=== PATIENT | male | born 1955 | race African-American/Black ===

== ENCOUNTER 2016-06-27 06:55 | Emergency (ER) | payer OTHER ==
--- NOTE | 2016-06-27 07:38 | PROVIDER DOCUMENTATION ---
HPI-Musculoskeletal Pain/Inj - GENERAL Chief Complaint: Back Pain Stated Complaint: BACK PX/DIABETIC SORE ON TOE Time Seen by Provider: 06/27/16 07:21 Source: patient - HX OF PRESENT ILLNESS-MUSKULOSKELTAL Nature of Presenting Problem: 6days of unprovoked acute pain on chronic pain in lumbar area Quality of Pain: reports: aching, sharp, stabbing Severity in ED: moderate Onset/Duration: 6 days ago Timing: still present Modifying Factors: improves with: lying down. worse with: movement Any recent injury?: No Locality of Occurance: Home Similar Symptoms Previously?: Yes Recently seen or treated by another doctor?: No Review of Systems - Adult - REVIEW OF SYSTEMS - ADULT Constitutional: denies: chills, fever Eyes: reports: no symptoms reported Ears, Nose, Mouth & Throat: reports: no symptoms reported Cardiovascular: denies: chest pain, palpitations Respiratory: denies: cough, shortness of breath Gastrointestinal: denies: constipation, diarrhea, nausea, vomiting Genitourinary: reports: no symptoms reported Musculoskeletal: reports: back pain Integumentary: reports: no symptoms reported Neurological: reports: no symptoms reported Psychiatric: reports: no symptoms reported Endocrine: reports: no symptoms reported Hematologic/Lymphatic: reports: no symptoms reported Allergic/Immunologic: reports: no symptoms reported Past History - Adult - PAST MEDICAL HISTORY-ADULT Review of Records: reports: Nursing Assessment Review, Medications Reviewed, Social history reviewed & non-contributory. 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) Neurological: reports: denies history Psychiatric: reports: anxiety Endocrine/Immune: reports: Diabetes, thyroid disorder (parathyroid), other (CKD / sucessful transplant 2008 on immunosuppressants) Other Conditions: reports: denies history - PRIOR SURGERIES/PROCEDURES Surgical/Procedure History: reports: cholecystectomy, other (parathyroidectomy, kidney transplant) - IMMUNIZATION STATUS Childhood Immunizations: See Nurse Assessment Flu Vaccine: See Nurse Assessment - FAMILY HISTORY Family History: CAD over 55 yo Physical Exam-Injury Related - Physical Exam-Injury Related Initial Vital Signs Reviewed: Yes General Appearance: appears well, alert, no apparent distress Eyes: PERRL/EOMI Head, Ears, Nose, Mouth & Throat: normocephalic/atraumatic Neck: supple Respiratory: lungs clear, no respiratory distress Cardiovascular: regular rate, rhythm Peripheral Pulses: dorsalis-pedis (R): 1+, dorsalis-pedis (L): 1+ Abdominal Exam: soft Lymphatic: no adenopathy Back Exam: no CVA tenderness Extremity: pulse deficit, slow capillary refill Integumentary: normal color Neurologic: grossly normal Psych/Mental Status: normal mood/affect Progress - XRAY 1 XRAY Study: Lumbar Spine (degenerative changes) Departure - Departure Time of Disposition Order: 09:19 DIAGNOSIS: Low back pain Qualifiers: Chronicity: acute Back pain laterality: bilateral Sciatica presence: without sciatica Qualified Code(s): M54.5 - Low back pain Disposition: HOME 01 Certified Medical Emergency: Emergent Condition: Stable Additional Instructions: ED Follow Up Instructions: You have been treated by a care provider in the Emergency Department. These instructions are being provided to you so you can have an understanding of how to care for yourself upon discharge. Upon discharge from the Emergency Department, you are responsible for making arrangements for follow-up care by a physician of your choice. Take all prescribed medications as directed. Return to the Emergency Department immediately for any new or worsening symptoms. You may call the Physician Referral phone number at [phone] to obtain a list of Physicians who are taking new patients. Prescriptions: Tramadol [Ultram] 50 mg PO Q6H PRN PRN #20 tablet PRN Reason: Pain
--- NOTE | 2016-06-27 08:37 | Diag Imaging Result Document ---
PROCEDURE NAME: LUMBAR SPINE - 06/27/2016 LUMBAR SPINE AP AND LATERAL WITH OBLIQUES, 6 VIEWS: FINDINGS: There is slight curvature to the spine which may simply be positional in nature. No compressed vertebra. No subluxation. There are only tiny degenerative bone spurs. Prominent atherosclerosis. Prominent stool throughout the colon The gallbladder has been removed. IMPRESSION: 1. Tiny degenerative bony spurs. 2. Prominent atherosclerosis. 3. Constipation. [facility]
[2016-06-27 09:33] VITALS: BP 164/81
== END 2016-06-27 09:32 | disposition home or self-care (01) ==
LOC: P.ED 06:55
DX: M54.5 Low back pain (principal); I48.91 Unspecified atrial fibrillation; E78.5 Hyperlipidemia, unspecified; K21.9 Gastro-esophageal reflux disease without esophagitis; E11.9 Type 2 diabetes mellitus without complications; E07.9 Disorder of thyroid, unspecified; I12.9 Hypertensive chronic kidney disease with stage 1 through stage 4 chronic kidney disease, or unspecified chronic kidney disease; N18.9 Chronic kidney disease, unspecified; Z94.0 Kidney transplant status; Z79.899 Other long term (current) drug therapy; Z79.52 Long term (current) use of systemic steroids; Z79.4 Long term (current) use of insulin; Z82.49 Family history of ischemic heart disease and other diseases of the circulatory system
CPT/HCPCS: 72110; 82948; 99284

== ENCOUNTER 2016-07-13 17:54 | Emergency (ER) ==
--- NOTE | 2016-07-13 18:29 | EKG Report ---
Test Performed on : 07/13/2016 6:05:34 PM Test Reason : stroke like symptom Blood Pressure : / mmHG Vent. Rate : 095 BPM Atrial Rate : 113 BPM P-R Int : 000 ms QRS Dur : 100 ms QT Int : 384 ms P-R-T Axes : 000 -04 108 degrees QTc Int : 482 ms Atrial fibrillation. with premature ventricular or aberrantly conducted complexes. Cannot rule out Anterior infarct , age undetermined Abnormal ECG When compared with ECG of 01-JUN-2016 19:50, Atrial fibrillation. has replaced Sinus rhythm. QT has lengthened Unconfirmed Result
--- NOTE | 2016-07-13 19:15 | ED EKG INTERP ---
EKG Interpretation - EKG Time of EKG reading by physician:: 18:05 EKG Read and Signed by:: Sudarshan Neff EKG Interpretation (*Must complete 3 of following elements*): Abnormal Rate: 95 Rhythm: NSR W/PAC'S NO INTERVAL CHANGES [place]: normal QRS: normal RI Interval: normal ST Wave: normal - EKG # 2 Time of EKG reading by physician:: 18:06 EKG Read and Signed by:: Sudarshan Neff EKG Interpretation (*Must complete 3 of following elements*): Abnormal Rate: 84 Rhythm: NSR ST Wave: non-specific ST changes (T WAVE CHANGES) Comments: LITTLE CHANGE FROM 06/11 STUDY Attestation - Scribe Verification/Attestation Scribe:: Cathy Arthur Acting as Scribe for:: Sudarshan Neff Scribe documention review:: This chart was documented by a scribe and accurately reflects the service the provider performed and the decisions made by the provider. Physician Attestation - Physician Attestation I, the provider, attest to the following statement:: Sudarshan Neff Physician documentation Attestation:: This documentation recorded by the scribe accurately reflects the service I personally performed and the decisions made by me.
[2016-07-13 19:16] LABS: MANUAL DIFF NEEDED? NO
[2016-07-13] MEDS ORDERED: LABETALOL IV ONE (19:19)
[2016-07-13] MEDS ORDERED: ASPIRIN PO ONE (19:19)
[2016-07-13] MEDS ORDERED: VASOTEC IV ONE (19:21)
[2016-07-13 19:22] LABS: BASO% 0.2 % (0.0-0.8); EOS# 0.19 X1000 (0.0-0.7); EOS% 3.4 % (0.0-10.0); HEMATOCRIT 42.4 % (42.0-52.0); HEMOGLOBIN 13.7 g/dL (14.0-18.0); IMM GRAN# 0.01 X1000 (0.0-0.04); IMM GRAN% 0.2 % (0.0-0.5); LYMPH# 0.99 X1000 (1.2-3.4); MCH 28.2 PG (27-31); MCHC 32.3 g/dL (33-37); MCV 87.4 FL (81-99); MONO# 0.81 X1000 (0.11-0.59); MONO% 14.7 % (1.7-9.3); MPV 10.5 FL (7.4-10.4); NEUT% 63.5 % (42.2-75.2); PLT 136 X1000 (130-400); RBC 4.85 XMIL (4.7-6.1)
--- NOTE | 2016-07-13 19:28 | PROVIDER DOCUMENTATION ---
HPI-General Adult - General Source: patient - History of Present Illness -Gen Adult Nature of Presenting Problems: PT IS A 60YOM PRESENTING TO THE ED C/O NUMBNESS AND PAIN TO THE RIGHT LEG. PT STATES WAS SEEN AT [place] X[place] WEE[place] AGO AND DIAGNOSED WITH SPINAL STENOSIS. THEY ADVISED EITHER SURGERY, EPIDURAL INJECTION, OR NOTHING AT ALL. AT TIME OF EXAM PT HAD NO DEFICITS. A PUSTULE NOTED TO THE LEFT FOOT, 2 HEALING WOUNDS RT GREAT TOE, ERYTHEMA DISTAL RT FOOT IN COMPARISON TO HIS LEFT FOOT. ADVANCED DAMAGE TO NAIL BEDS Location of Pain/Injury: reports: generalized Pain Radiation: reports: no radiation Quality of Pain: reports: aching Severity: reports: moderate Onset/Duration: reports: just prior to arrival Timing: reports: still present Context/Activities at Onset: reports: light activity Modifying Factors: improves with: nothing Associated Symptoms: reports: cough, fatigue, sinus congestion/drainage, weakness, trouble walking. denies: chest pain, diaphoresis Similar Symptoms Previously?: No Recently seen or treated by another doctor?: No <Cathy Arthur - Last Filed: 07/13/16 22:24> <Sudarshan Neff - Last Filed: 07/13/16 22:44> - General Chief Complaint: Stroke-Like Symptoms Stated Complaint: STROKE LIKE SX Time Seen by Provider: 07/13/16 18:39 Allergies/Adverse Reactions: Patient Allergies Allergy/AdvReac Type Severity Reaction Status Date / Time morphine AdvReac NAUSEA/VOMI Verified 07/13/16 21:50 TING Home Medications: Home Medication List Medication Instructions Recorded Confirmed Last Taken Type Digoxin 0.125 mg PO DAILY 02/08/13 07/13/16 06/01/16 09:00 History Minoxidil 2.5 mg PO BID 02/08/13 07/13/16 06/01/16 09:00 History Prednisone 10 mg PO DAILY 02/08/13 07/13/16 06/01/16 09:00 History Tacrolimus [Prograf] 1 mg PO BID 02/08/13 07/13/16 06/01/16 09:00 History Clonidine [Catapres] 0.2 mg PO TID@0900,1500,2100 04/01/13 07/13/16 06/01/16 15: 00 History Alprazolam 0.5 mg PO TID PRN PRN 12/07/13 07/13/16 06/01/16 09:00 History Calcitriol 0.5 mcg PO DAILY 12/07/13 07/13/16 06/01/16 09:00 History Docusate Sodium [Colace] 100 mg PO 4XDAY #20 capsule 12/07/13 07/13/16 06/01/16 09:00 Rx Mycophenolate Mofetil [Cellcept] 250 mg PO BID 12/07/13 07/13/16 06/01/16 09:00 History PRAVAstatin [Pravachol] 80 mg PO QHS 12/07/13 07/13/16 05/31/16 21:00 History Tamsulosin [Flomax] 0.4 mg PO DAILY 12/07/13 07/13/16 06/01/16 09:00 History Gabapentin 300 mg PO BID 02/07/15 07/13/16 06/01/16 09:00 History Hum Insulin NPH/Reg Insulin Hm 20 units SQ HS 02/07/15 07/13/16 05/31/16 21:00 History [Novolin 70-30 100 Unit/ml Vial] Hum Insulin NPH/Reg Insulin Hm 60 unit SQ DAILY 02/07/15 07/13/16 06/01/16 09: 00 History [Novolin 70-30 100 Unit/ml Vial] Magnesium Oxide 400 mg PO DAILY 02/07/15 07/13/16 06/01/16 09:00 History Carvedilol [Coreg] 25 mg PO BID 12/15/15 07/13/16 06/01/16 09:00 History Omeprazole [Prilosec] 20 mg PO DAILY@0700 06/03/16 07/13/16 Unknown History Acyclovir 200 mg PO DIRECTED 07/13/16 07/13/16 Unknown History Chlorthalidone [Hygroton] 25 mg PO DAILY #30 tablet 07/13/16 Unknown Rx Clopidogrel Bisulfate [Plavix] 75 mg PO DAILY 07/13/16 07/13/16 Unknown History Cyclobenzaprine [Flexeril] 10 mg PO TID PRN PRN 07/13/16 07/13/16 Unknown History Duloxetine HCl 60 mg PO DAILY 07/13/16 07/13/16 Unknown History Finasteride 5 mg PO DAILY 07/13/16 07/13/16 Unknown History Fluticasone Propionate [Flonase 1 spray INH DAILY 07/13/16 07/13/16 Unknown History Allergy Relief] Hydrocodone/APAP 5 mg/325 mg 1 - 2 tab PO Q6H PRN PRN #18 tablet 07/13/16 Unknown Rx [[place]-5] Hydrocodone/Acetaminophen [[place] 1 tab PO Q4H PRN PRN 07/13/16 07/13/16 Unknown History 10-325 Tablet] Iron Fum,Ps/FA/Vit B with C #9 1 cap PO DAILY 07/13/16 07/13/16 Unknown History [Integra Plus Capsule] Review of Systems - Adult - REVIEW OF SYSTEMS - ADULT Constitutional: reports: see HPI, fatique. denies: weight gain Eyes: reports: no symptoms reported Ears, Nose, Mouth & Throat: reports: no symptoms reported Cardiovascular: reports: see HPI, heart murmur, irregular heart rate. denies: chest pain Respiratory: reports: see HPI, chronic cough. denies: hemoptysis, shortness of breath Gastrointestinal: reports: no symptoms reported Genitourinary: reports: no symptoms reported Musculoskeletal: reports: no symptoms reported Integumentary: reports: see HPI, nail changes, skin thickening Neurological: reports: no symptoms reported Psychiatric: reports: no symptoms reported Endocrine: reports: no symptoms reported Hematologic/Lymphatic: reports: no symptoms reported Allergic/Immunologic: reports: no symptoms reported All Other Systems: Reviewed and Negative <Cathy Arthur - Last Filed: 07/13/16 22:24> Past History - Adult - PAST MEDICAL HISTORY-ADULT Review of Records: reports: Old Records Reviewed, Nursing Assessment Review, Medications Reviewed, Social history reviewed & non-contributory. 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) Musculoskeletal: reports: denies history Neurological: reports: denies history Psychiatric: reports: anxiety Endocrine/Immune: reports: Diabetes, thyroid disorder (parathyroid), other (CKD / sucessful transplant 2008 on immunosuppressants) Other Conditions: reports: denies history - PRIOR SURGERIES/PROCEDURES Surgical/Procedure History: reports: cholecystectomy, other (parathyroidectomy, kidney transplant) - IMMUNIZATION STATUS Childhood Immunizations: See Nurse Assessment Flu Vaccine: See Nurse Assessment - FAMILY HISTORY Family History: CAD over 55 yo - SOCIAL HISTORY Smoking: denies, non-smoker Substance Use: none/never, denies Alcohol Use Frequency: never Living Situation: family <Cathy Arthur - Last Filed: 07/13/16 22:24> Physical Exam-General - PHYSICAL EXAM-ADULT Initial Vital Signs Reviewed: Yes - CONSTITUTIONAL General Appearance: appears well, alert, mild distress, obese - EYES Eyes: PERRL/EOMI, pink conjunctivae, fundi clear, no AV nicking - HEAD, EARS, NOSE, MOUTH & THROAT HENMT: normocephalic/atraumatic, moist mucous membranes, normal ENT inspection, TMs normal, pharynx normal - NECK Neck: non-tender, full range of motion, supple, normal inspection - RESPIRATORY Respiratory: chest non-tender, no pleuratic chest pain, no respiratory distress , no accessory muscle use, decreased breath sounds, crackles (MILD BASILAR CRACKLES) - CARDIOVASCULAR Cardiovascular: normal peripheral pulses, no gallop, no JVD, tachycardia, systolic murmur (2/6), irregularly irregular. 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, grossly normal, no motor/sensory deficits - PSYCHIATRIC Psych/Mental Status: normal mood/affect, normal thought content, normal thought process, oriented x 3 <Cathy Arthur - Last Filed: 07/13/16 22:24> Progress - PLAN OF CARE/RESULTS Progress/Plan/Lab Results: Laboratory Tests 07/13/16 07/13/16 07/13/16 19:07 19:07 19:07 WBC 5.51 RBC 4.85 Hgb 13.7 L Hct 42.4 MCV 87.4 MCH 28.2 MCHC 32.3 L RDW Std Deviation 13.9 Plt Count 136 MPV 10.5 H Immature Gran % (Auto) 0.2 Neut % (Auto) 63.5 Lymph % (Auto) 18.0 L [place] % (Auto) 14.7 H Eos % (Auto) 3.4 Baso % (Auto) 0.2 Immature Gran # (Auto) 0.01 Neut # (Auto) 3.50 Lymph # (Auto) 0.99 L [place] # (Auto) 0.81 H Eos # (Auto) 0.19 Baso # (Auto) 0.01 PT INR APTT (Factor Assay) Sodium 141 Potassium 3.5 Chloride 100 Carbon Dioxide 29 Anion Gap 13 BUN 27 H Creatinine 1.5 H Estimated GFR/1.73 m2 47 BUN/Creatinine Ratio 18 Glucose 122 H Calculated Osmolality 288 Calcium 9.3 Total Bilirubin 0.60 AST 29 ALT 18 Alkaline Phosphatase 61 Creatine Kinase Creatine Kinase Index CK-MB (CK-2) Troponin T 0.032 Yry-S-Qwwqeacchhh Pept Total Protein 7.3 Albumin 4.0 Globulin 3.0 Albumin/Globulin Ratio 1.0 Urine Source Urine Color Urine Clarity Urine pH Ur Specific [place] Urine Protein Urine Ketones Urine Blood Urine Nitrite Urine Bilirubin Urine Urobilinogen Urine Microscopic RBC Urine WBC Urine Microscopic WBC Ur Epithelial Cells Urine Glucose Urine Opiates Screen Ur Oxycodone Screen Urine Methadone Screen Ur Barbituates Screen Ur Tricyclics Screen Ur Phencyclidine Scrn Ur Amphetamines Screen U Methamphetamines Scrn Urine MDMA Screen U Benzodiazepines Scrn Urine Cocaine Screen U Cannabinoids Screen 07/13/16 07/13/16 07/13/16 19:07 19:07 19:14 WBC RBC Hgb Hct MCV MCH MCHC RDW Std Deviation Plt Count MPV Immature Gran % (Auto) Neut % (Auto) Lymph % (Auto) [place] % (Auto) Eos % (Auto) Baso % (Auto) Immature Gran # (Auto) Neut # (Auto) Lymph # (Auto) [place] # (Auto) Eos # (Auto) Baso # (Auto) PT 14.5 INR 1.10 APTT (Factor Assay) 33.1 Sodium Potassium Chloride Carbon Dioxide Anion Gap BUN Creatinine Estimated GFR/1.73 m2 BUN/Creatinine Ratio Glucose Calculated Osmolality Calcium Total Bilirubin AST ALT Alkaline Phosphatase Creatine Kinase 335 H Creatine Kinase Index 1.1 CK-MB (CK-2) 3.83 Troponin T [id number]-Guwzfzbelpa Pept 1478 H Total Protein Albumin Globulin Albumin/Globulin Ratio Urine Source Urine Color Urine Clarity Urine pH Ur Specific [place] Urine Protein Urine Ketones Urine Blood Urine Nitrite Urine Bilirubin Urine Urobilinogen Urine Microscopic RBC Urine WBC Urine Microscopic WBC Ur Epithelial Cells Urine Glucose Urine Opiates Screen Ur Oxycodone Screen Urine Methadone Screen Ur Barbituates Screen Ur Tricyclics Screen Ur Phencyclidine Scrn Ur Amphetamines Screen U Methamphetamines Scrn Urine MDMA Screen U Benzodiazepines Scrn Urine Cocaine Screen U Cannabinoids Screen 07/13/16 07/13/16 20:22 20:22 WBC RBC Hgb Hct MCV MCH MCHC RDW Std Deviation Plt Count MPV Immature Gran % (Auto) Neut % (Auto) Lymph % (Auto) [place] % (Auto) Eos % (Auto) Baso % (Auto) Immature Gran # (Auto) Neut # (Auto) Lymph # (Auto) [place] # (Auto) Eos # (Auto) Baso # (Auto) PT INR APTT (Factor Assay) Sodium Potassium Chloride Carbon Dioxide Anion Gap BUN Creatinine Estimated GFR/1.73 m2 BUN/Creatinine Ratio Glucose Calculated Osmolality Calcium Total Bilirubin AST ALT Alkaline Phosphatase Creatine Kinase Creatine Kinase Index CK-MB (CK-2) Troponin T [id number] Pept Total Protein Albumin Globulin Albumin/Globulin Ratio Urine Source VOIDED Urine Color YELLOW Urine Clarity CLEAR Urine pH 6.5 Ur Specific [place] 1.020 Urine Protein TRACE A Urine Ketones NEGATIVE Urine Blood NEGATIVE Urine Nitrite NEGATIVE Urine Bilirubin NEGATIVE Urine Urobilinogen NORMAL Urine Microscopic RBC <10 Urine WBC 1+ A Urine Microscopic WBC <10 Ur Epithelial Cells <10 Urine Glucose NEGATIVE Urine Opiates Screen PRESUMPTIVE POSITIVE A Ur Oxycodone Screen NONE DETECTED Urine Methadone Screen NONE DETECTED Ur Barbituates Screen NONE DETECTED Ur Tricyclics Screen PRESUMPTIVE POSITIVE A Ur Phencyclidine Scrn NONE DETECTED Ur Amphetamines Screen NONE DETECTED U Methamphetamines Scrn NONE DETECTED Urine MDMA Screen NONE DETECTED U Benzodiazepines Scrn NONE DETECTED Urine Cocaine Screen NONE DETECTED U Cannabinoids Screen NONE DETECTED Orders Category Date Time Status Cardiac Monitoring DIRECTED Care 07/13/16 18:16 Active Finger Stick Blood Sugar (ED) DIRECTED Care 07/13/16 18:16 Active Saline Loc NOW Care 07/13/16 18:16 Active CHEST-PORTABLE [RAD] Stat Exams 07/13/16 18:16 Taken HEAD W/O CONTRAST [CT] Stat Exams 07/13/16 18:16 Taken CBC WITH ELECTRONIC DIFF [HEME] Stat Lab 07/13/16 19:07 Completed CK PROFILE [SP CHEM] Stat Lab 07/13/16 19:07 Completed COMPREHENSIVE METABOLIC PANEL [CHEM] Stat Lab 07/13/16 19:07 Completed [address]IME WITH INR PL [COAG] Stat Lab 07/13/16 19:[address] [COAG] Stat Lab 07/13/16 19:07 Completed TROPONIN T Stat Lab 07/13/16 19:[address] W/POSS RFLX CULT [URINALYSIS] Stat Lab 07/13/16 20:22 Com[address] DRUG SCREEN PL Stat Lab 07/13/16 20:22 Completed bnp [PRO B-NATRIURETIC PEPTIDE] Stat Lab 07/13/16 19:14 Completed Aspirin Med 07/13/16 19:19 Discontinued 325 mg PO NOW ONE Carvedilol [Coreg] Med 07/13/16 21:34 Discontinued 25 mg PO NOW ONE Clonidine [Catapres] Med 07/13/16 21:32 Discontinued 0.2 mg PO NOW ONE Enalaprilat [Vasotec] Med 07/13/16 19:21 Discontinued 2.5 mg IV NOW ONE Furosemide [Lasix] Med 07/13/16 21:32 Discontinued 40 mg IV NOW ONE Labetalol Med 07/13/16 20:17 Discontinued 100 mg .ROUTE .STK-MED ONE Labetalol Med 07/13/16 19:19 Discontinued 20 mg IV NOW ONE Oxycodone/APAP 10 mg/325 mg [Percocet-10] Med 07/13/16 21:34 Discontinued 1 each PO NOW ONE EKG [EKG] Stat Ther 07/13/16 18:11 Draft EKG [EKG] Stat Ther 07/13/16 19:42 Draft Vital Signs - 24 hr 07/13/16 07/13/16 07/13/16 18:05 19:15 19:45 Pulse Rate 106 H 92 H 104 H Respiratory 14 18 22 Rate Blood Pressure 214/130 198/120 191/116 O2 Sat by Pulse 94 L 95 89 L Oximetry 07/13/16 07/13/16 07/13/16 20:21 20:31 20:44 Pulse Rate 81 69 Respiratory 20 20 13 Rate Blood Pressure 168/106 183/104 179/100 O2 Sat by Pulse 91 L 94 L 96 Oximetry 0307/13/16 07/13/16 20:49 21:06 21:09 Pulse Rate 71 77 79 Respiratory 20 14 14 Rate Blood Pressure 172/98 176/97 145/91 O2 Sat by Pulse 89 L 91 L 92 L Oximetry 07/13/16 07/13/16 07/13/16 21:12 21:48 22:00 Pulse Rate 63 79 77 Respiratory 13 19 18 Rate Blood Pressure 164/96 156/84 178/111 O2 Sat by Pulse 93 L 92 L 91 L Oximetry PT HAD [place] AT [place] X[facility] MONTH[place] AGO AND HIS IMPRESSION: DDD IN LUMBAR, 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 - XRAY 1 XRAY: Bilateral XRAY Study: Chest (CARDIOMEGALY, VASCULAR CONGESTION, SIGNIFICANT CHANGE SINCE STUDY - MYA) - CT/MRI 1 CT Study: Head (CHRONIC MICROVASCULAR WHITE MATTER DZ, NO BLEED OR MASS EFFECT, RT MASTOID EFFUSION, UNCHANGED FROM 04/16/15 STUDY - BIN) <Cathy Arthur - Last Filed: 07/13/16 22:24> Departure - Departure Time of Disposition Order: 22:23 Certified Medical Emergency: Emergent <Cathy Arthur - Last Filed: 07/13/16 22:24> - Departure Time of Disposition Order: 22:30 Certified Medical Emergency: Emergent <Sudarshan Neff - Last Filed: 07/13/16 22:44> - Departure DIAGNOSIS: Spinal stenosis Qualifiers: Spinal region: lumbar Qualified Code(s): M48.06 - Spinal stenosis, lumbar region Cardiac arrhythmia Qualifiers: Arrhythmia type: atrial fibrillation Atrial fibrillation type: unspecified Qualified Code(s): I48.91 - Unspecified atrial fibrillation CHF (congestive heart failure) Qualifiers: Congestive heart failure type: unspecified congestive heart failure type Congestive heart failure chronicity: unspecified congestive heart failure chronicity Qualified Code(s): I50.9 - Heart failure, unspecified Disposition: HOME 01 Condition: Fair Additional Instructions: SEE [facility] DO[facility] re SPINAL STENOSIS AND LEG WEAKNESS MAKE APPOINTMENT WITH [facility] TE[facility]ER re FREQUENT RHYTHM IRREGULARITIES (take EKG with you) Prescriptions: Chlorthalidone [Hygroton] 25 mg PO DAILY #30 tablet Hydrocodone/APAP 5 mg/325 mg [[place]-5] 1 - 2 tab PO Q6H PRN PRN #18 tablet PRN Reason: Pain Referrals: Noemy Chin [Primary Care Provider] - Instructions: Acetaminophen; Hydrocodone tablets or capsules, Chlorthalidone tablets Attestation - Scribe Verification/Attestation Scribe:: Cathy Arthur Acting as Scribe for:: Sudarshan Neff Scribe documention review:: This chart was documented by a scribe and accurately reflects the service the provider performed and the decisions made by the provider. <Cathy Arthur - Last Filed: 07/13/16 22:24> Physician Attestation - Physician Attestation I, the provider, attest to the following statement:: Sudarshan Neff Physician documentation Attestation:: This documentation recorded by the scribe accurately reflects the service I personally performed and the decisions made by me. <Cathy Arthur - Last Filed: 07/13/16 22:24>
[2016-07-13 19:43] LABS: CALCIUM 9.3 mg/dL (8.8-10.2); POTASSIUM 3.5 mmol/L (3.5-5.1); TOTAL BILIRUBIN 0.6 mg/dL (0.20-1.00); TOTAL PROTEIN 7.3 g/dL (6.3-8.3)
[2016-07-13 19:49] LABS: INR 1.1 (0.86-1.15); PROTIME 14.5 Seconds (12.1-15.5)
[2016-07-13 19:50] LABS: PTT PL 33.1 Seconds (22.6-43.9)
[2016-07-13] MEDS ORDERED: LABETALOL ONE (20:17)
[2016-07-13 20:22] LABS: CK INDEX 1.1 (0.0-2.5); CK-MB 3.83 ng/mL (0.0-5.0)
--- NOTE | 2016-07-13 20:40 | EKG Report ---
Test Performed on : 07/13/2016 8:31:05 PM Test Reason : pain Blood Pressure : / mmHG Vent. Rate : 070 BPM Atrial Rate : 242 BPM P-R Int : 000 ms QRS Dur : 104 ms QT Int : 402 ms P-R-T Axes : 155 -16 123 degrees QTc Int : 434 ms Atrial flutter. with variable AV block. T wave abnormality, consider lateral ischemia Abnormal ECG When compared with ECG of 13-JUL-2016 18:05, (Unconfirmed) Atrial flutter. has replaced Atrial fibrillation. QT has shortened Unconfirmed Result
[2016-07-13 20:41] LABS: URINE CULTURE PL NEEDED? NO; URINE SOURCE VOIDED
[2016-07-13 20:49] LABS: BILIRUBIN URINE NEGATIVE (NEGATIVE); BLOOD URINE NEGATIVE (NEGATIVE); CLARITY CLEAR (CLEAR); COLOR YELLOW; GLUCOSE URINE NEGATIVE (NEGATIVE); LEUKOCYTES URINE 1+ (NEGATIVE); NITRITE URINE NEGATIVE (NEGATIVE); PH URINE 6.5; PROTEIN URINE TRACE mg/dL (NEGATIVE); UROBILINOGEN URINE NORMAL
[2016-07-13 20:55] LABS: UR AMPHETAMINES QUAL NONE DETECTED (NONE DETECT); UR BARBITUATES QUAL NONE DETECTED (NONE DETECT); UR BENZODIAZEPIN QUAL NONE DETECTED (NONE DETECT); UR CANNABINOIDS QUAL NONE DETECTED (NONE DETECT); UR COCAINE QUAL NONE DETECTED (NONE DETECT); UR MDMA QUAL NONE DETECTED (NONE DETECT); UR METHADONE QUAL NONE DETECTED (NONE DETECT); UR METHAMPHETAMINE QUAL NONE DETECTED (NONE DETECT); UR OPIATES QUAL PRESUMPTIVE POSITIVE (NONE DETECT); UR OXYCODONE QUAL NONE DETECTED (NONE DETECT); UR PCP QUAL NONE DETECTED (NONE DETECT); UR TCA QUAL PRESUMPTIVE POSITIVE (NONE DETECT)
[2016-07-13 20:56] LABS: URINE EPITHELIAL CELLS <10 /HPF (<10); URINE RBC <10 /HPF (<10); URINE WBC <10 /HPF (<10)
--- NOTE | 2016-07-13 21:01 | ED EKG INTERP ---
EKG Interpretation - EKG Time of EKG reading by physician:: 20:32 EKG Read and Signed by:: Sudarshan Neff EKG Interpretation (*Must complete 3 of following elements*): Abnormal Rate: 70 Rhythm: A-FLUTTER W/VARIABLE AV BLOCK [place]: normal QRS: normal ST Wave: non-specific ST changes (T WAVE ABNORMALITY, CONSIDER LATERAL ISCHEMIA) Attestation - Scribe Verification/Attestation Scribe:: Cathy Arthur Acting as Scribe for:: Sudarshan Neff Scribe documention review:: This chart was documented by a scribe and accurately reflects the service the provider performed and the decisions made by the provider. Physician Attestation - Physician Attestation I, the provider, attest to the following statement:: Sudarshan Neff Physician documentation Attestation:: This documentation recorded by the scribe accurately reflects the service I personally performed and the decisions made by me.
[2016-07-13] MEDS ORDERED: CATAPRES PO ONE (21:32)
[2016-07-13] MEDS ORDERED: LASIX IV ONE (21:32)
[2016-07-13] MEDS ORDERED: PERCOCET-10 PO ONE (21:34)
[2016-07-13] MEDS ORDERED: COREG PO ONE (21:34)
[2016-07-13 22:49] VITALS: BP 166/100
--- NOTE | 2016-07-14 08:21 | Diag Imaging Result Document ---
PROCEDURE NAME: HEAD W/O CONTRAST - 07/13/[address]: COMPARISON: 04/16/2015. FINDINGS: There is grossly stable, minimal periventricular white matter chronic microvascular disease. No intracranial mass or hemorrhage. The skull is intact. There is fluid in the right mastoid consistent with mastoiditis. There is extremely severe vascular calcification of the small arteries of the brain and the soft tissues. IMPRESSION: 1. Right mastoiditis. 2. Stable minimal chronic microvascular disease. 3. Severe vascular disease.
--- NOTE | 2016-07-14 08:39 | Diag Imaging Result Document ---
PROCEDURE NAME: CHEST-PORTABLE - 07/13/2016 CHEST, SINGLE VIEW: INDICATION: Strokelike symptoms. COMPARISON: 06/01/2016. FINDINGS: There are mediastinal vascular stents and surgical clips within the superior mediastinum and neck. There is a left axillary stent as well. There is cardiomegaly. The pulmonary vasculature is not congested. No infiltrates or effusions are identified. There has been no change from the prior study. IMPRESSION: Stable cardiomegaly.
== END 2016-07-13 23:09 | disposition home or self-care (01) ==
LOC: P.ED 17:54
DX: M48.06 Spinal stenosis, lumbar region (principal); I48.91 Unspecified atrial fibrillation; I50.9 Heart failure, unspecified; R20.0 Anesthesia of skin; R53.83 Other fatigue; I49.9 Cardiac arrhythmia, unspecified; R05 Cough; E78.5 Hyperlipidemia, unspecified; Z79.899 Other long term (current) drug therapy; K21.9 Gastro-esophageal reflux disease without esophagitis; E11.9 Type 2 diabetes mellitus without complications; I12.9 Hypertensive chronic kidney disease with stage 1 through stage 4 chronic kidney disease, or unspecified chronic kidney disease; N18.9 Chronic kidney disease, unspecified; Z94.0 Kidney transplant status; E20.9 Hypoparathyroidism, unspecified; E66.9 Obesity, unspecified; R00.0 Tachycardia, unspecified; R01.1 Cardiac murmur, unspecified; R60.9 Edema, unspecified; I51.7 Cardiomegaly; R94.31 Abnormal electrocardiogram [ECG] [EKG]; Z79.02 Long term (current) use of antithrombotics/antiplatelets; Z79.4 Long term (current) use of insulin; Z79.52 Long term (current) use of systemic steroids; Z82.49 Family history of ischemic heart disease and other diseases of the circulatory system
CPT/HCPCS: 70450; 71010; 80053; 80305; 81001; 82550; 82553; 83880; 84484; 85025; 85610; 85730; 93005; 96374; 96375; J1940